=== PATIENT | male | born 1995 | race African-American/Black ===

== ENCOUNTER 2017-08-06 05:12 | Emergency (ER) | payer BC ==
[~2017-08-06] VITALS: Ht 180.3 cm; Wt 82.8 kg
[2017-08-06 07:58] VITALS: BP 128/69
== END 2017-08-06 08:00 | disposition home or self-care (01) ==
LOC: ED 07:12
DX: F14.10 Cocaine abuse, uncomplicated (principal); F10.10 Alcohol abuse, uncomplicated; F41.9 Anxiety disorder, unspecified; F17.200 Nicotine dependence, unspecified, uncomplicated
CPT/HCPCS: 36415; 80047; 93005; 99285